=== PATIENT | female | born 2000 | race American Indian/Alaskan Native ===

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

== ENCOUNTER 2019-03-03 15:35 | Emergency (ER) | payer SELFPAY ==
[2019-03-03 16:24] VITALS: BP 118/76
--- NOTE | 2019-03-03 20:00 | Emergency Department Report ---
ED Headache HPI - General Chief Complaint: Headache Stated Complaint: HEADACHES/EXTREME/DIZZY Time Seen by Provider: 03/03/19 19:28 Source: patient Exam Limitations: no limitations - History of Present Illness Initial Comments: 18-year-old female presents to ED with complaint of headaches. Patient reports temporal and frontal headaches times one year. Reports associated nausea, no fever. Reports photophobia. Denies weakness or numbness. Patient states headaches are usually relieved with Goody powder. She states headache usually lasts no more than 2 days at a time. Patient states she has seen her physician about these headaches in the past, prescriptions have been given. Patient has not followed up with a neurologist. Patient states she had a headache earlier today, has now resolved. Timing/Duration: episodic, other (1 year) Quality: moderate Recent Head Trauma: no recent headache/trauma Modifying Factors: improves with: medication (goody powder), rest Associated Symptoms: nausea/vomiting. denies: confusion, fever/chills, numbness in legs/feet, rash, stiff neck, vision changes, weakness Allergies/Adverse Reactions: Allergies No Known Allergies Allergy (Verified 03/03/19 15:42) Home Medications: Ambulatory Orders Acetaminophen/Codeine [Tylenol #3] 1 tab PO Q6H PRN #20 tab 05/07/15 Ibuprofen [Motrin 600 MG tab] 600 mg PO Q8H PRN #30 tablet 08/24/16 Acetaminophen/Codeine [Tylenol /Codeine # 3 tab] 1 tab PO Q4HR PRN #15 tablet 08/30/16 Acyclovir [Zovirax Tab] 800 mg PO Q12H #40 tab 08/30/16 metroNIDAZOLE [Flagyl] 500 mg PO Q12HR #14 tab 08/30/16 Ferrous Sulfate 325 mg PO BID #60 tablet. 12/17/17 oxyCODONE /ACETAMINOPHEN [Percocet 5/325] 1 tab PO Q6HR PRN #30 tablet 12/17/17 Ibuprofen [Motrin 600 MG tab] 600 mg PO Q8H PRN #30 tablet 07/22/18 Butalb/Acetamin/Caff 50-325-40 [Fioricet] 1 tab PO Q6HR PRN #10 tab 03/03/19 ED Review of Systems ROS: Stated complaint: HEADACHES/EXTREME/DIZZY Other details as noted in HPI Comment: All other systems reviewed and negative Constitutional: denies: fever Eyes: other (reports photophobia) Gastrointestinal: nausea Neurological: headache. denies: weakness, numbness, paresthesias ED Past Medical Hx - Past Medical History Previous Medical History?: Yes Hx Hypertension: No Hx Congestive Heart Failure: No Hx Diabetes: No Hx Deep Vein Thrombosis: No Hx Renal Disease: No Hx Sickle Cell Disease: No Hx Seizures: No Hx Asthma: No Hx COPD: No Hx HIV: No - Surgical History Past Surgical History?: No - Social History Smoking Status: Current Some Day Smoker Substance Use Type: None - Medications Home Medications: Home Medications Medication Instructions Recorded Confirmed Last Taken Type Acetaminophen/Codeine [Tylenol #3] 1 tab PO Q6H PRN #20 tab 05/07/15 08/24/16 Unknown Rx Ibuprofen [Motrin 600 MG tab] 600 mg PO Q8H PRN #30 tablet 08/24/16 Unknown Rx Acetaminophen/Codeine [Tylenol 1 tab PO Q4HR PRN #15 tablet 08/30/16 Unknown Rx /Codeine # 3 tab] Acyclovir [Zovirax Tab] 800 mg PO Q12H #40 tab 08/30/16 Unknown Rx metroNIDAZOLE [Flagyl] 500 mg PO Q12HR #14 tab 08/30/16 Unknown Rx Ferrous Sulfate 325 mg PO BID #60 tablet. 12/17/17 Unknown Rx oxyCODONE /ACETAMINOPHEN [Percocet 1 tab PO Q6HR PRN #30 tablet 12/17/17 Unknown Rx 5/325] Ibuprofen [Motrin 600 MG tab] 600 mg PO Q8H PRN #30 tablet 07/22/18 Unknown Rx Butalb/Acetamin/Caff 50-325-40 1 tab PO Q6HR PRN #10 tab 03/03/19 Unknown Rx [Fioricet] ED Physical Exam - General Limitations: No Limitations General appearance: alert, in no apparent distress - Head Head exam: Present: atraumatic, normocephalic - Eye Eye exam: Present: normal appearance, PERRL, EOMI - ENT ENT exam: Present: mucous membranes moist - Neck Neck exam: Present: normal inspection, full ROM. Absent: meningismus - Respiratory Respiratory exam: Present: normal lung sounds bilaterally. Absent: respiratory distress - Cardiovascular Cardiovascular Exam: Present: regular rate, normal rhythm - GI/Abdominal GI/Abdominal exam: Absent: distended - Extremities Exam Extremities exam: Present: normal inspection, full ROM - Neurological Exam Neurological exam: Present: alert, oriented X3, CN II-XII intact, normal gait. Absent: motor sensory deficit - Psychiatric Psychiatric exam: Present: normal affect, normal mood - Skin Skin exam: Present: warm, dry, intact, normal color. Absent: rash ED Course Vital Signs 03/03/19 16:22 Temperature 98.1 F Pulse Rate 74 Respiratory 18 Rate Blood Pressure 118/76 [Right] O2 Sat by Pulse 98 Oximetry ED Medical Decision Making - Medical Decision Making 18-year-old female presents to ED with headache times one year. Headaches are usually frontal or temporal in location. She currently reports headache has improved. Neuro exam is normal. Vital signs are Normal. Likely tension headaches. Patient given prescription for Fioricet and also information for neurology follow-up. Return precautions given. WIll discharge at this time. - Differential Diagnosis migraine headaches, tension headaches, cluster headaches Critical care attestation.: If time is entered above; I have spent that time in minutes in the direct care of this critically ill patient, excluding procedure time. ED Disposition Clinical Impression: Chronic headaches Disposition: DC-01 TO HOME OR SELFCARE Is pt being admited?: No Condition: Stable Instructions: Cluster Headache (ED), Migraine Headache (ED), Tension Headache (ED) Prescriptions: Butalb/Acetamin/Caff 50-325-40 [Fioricet] 1 tab PO Q6HR PRN #10 tab PRN Reason: Headache Referrals: PRIMARY MD KENDRA [Primary Care Provider] - 3-5 Days PEARL KEYS MD [Referring] - 3-5 Days [facility] [Provider Group] - 3-5 Days Time of Disposition: 20:00
== END 2019-03-03 20:09 | disposition home or self-care (01) ==
LOC: ED 15:35
DX: R51 Headache (principal); G89.29 Other chronic pain
CPT/HCPCS: 99281

== ENCOUNTER 2021-12-16 23:35 | Emergency (ER) | payer SELFPAY ==
--- NOTE | 2021-12-17 01:16 | XRay Report ---
RIGHT HAND 3 VIEWS INDICATION / CLINICAL INFORMATION: Right hand swelling for 2 weeks. No known injury per patient. COMPARISON: None available. FINDINGS: BONES and JOINT(S): No acute fracture or subluxation. No significant arthritis. SOFT TISSUES: No significant abnormality. ADDITIONAL FINDINGS: None. IMPRESSION: 1. No acute findings. Signer Name: Shahid Aguilar MD Signed: 12/17/2021 1:12 AM Workstation Name: [id number]
[2021-12-17] MEDS ORDERED: AZITHROMYCIN 250 MG TAB PO ONE (09:28)
[2021-12-17] MEDS ORDERED: LIDOCAINE-MPF (1%) 10 MG/1 ML VIAL 5 ML INFILTRATI ONE (09:28)
[2021-12-17] MEDS ORDERED: IBUPROFEN 800 MG TAB PO ONE (09:34)
--- NOTE | 2021-12-17 09:34 | Emergency Department Report ---
ED Male HPI - General Chief complaint: Extremity Injury, Upper Stated complaint: RIGHTHAND Time Seen by Provider: 12/17/21 09:22 Source: patient Mode of arrival: Ambulatory Limitations: No Limitations - History of Present Illness Initial comments: Patient is a 21-year-old female presenting to ED with complaint of pain and swelling in her right hand beginning yesterday. Denies any injury. - Related Data Previous Rx's Medication Instructions Recorded Last Taken Type Acetaminophen/Codeine [Tylenol #3] 1 tab PO Q6H PRN #20 tab 05/07/15 Unknown Rx Ibuprofen [Motrin 600 MG tab] 600 mg PO Q8H PRN #30 tablet 08/24/16 Unknown Rx Acetaminophen/Codeine [Tylenol 1 tab PO Q4HR PRN #15 tablet 08/30/16 Unknown Rx /Codeine # 3 tab] Acyclovir [Zovirax Tab] 800 mg PO Q12H #40 tab 08/30/16 Unknown Rx metroNIDAZOLE [Flagyl] 500 mg PO Q12HR #14 tab 08/30/16 Unknown Rx Ferrous Sulfate 325 mg PO BID #60 tablet. 12/17/17 Unknown Rx oxyCODONE /ACETAMINOPHEN [Percocet 1 tab PO Q6HR PRN #30 tablet 12/17/17 Unknown Rx 5/325] Ibuprofen [Motrin 600 MG tab] 600 mg PO Q8H PRN #30 tablet 07/22/18 Unknown Rx Butalb/Acetamin/Caff 50-325-40 1 tab PO Q6HR PRN #10 tab 03/03/19 Unknown Rx [Fioricet] Allergies Allergy/AdvReac Type Severity Reaction Status Date / Time No Known Allergies Allergy Verified 03/03/19 15:42 ED Review of Systems ROS: Stated complaint: RIGHTHAND Other details as noted in HPI Constitutional: denies: chills, fever Respiratory: denies: cough, shortness of breath, wheezing Cardiovascular: denies: chest pain, palpitations Gastrointestinal: denies: abdominal pain, nausea, diarrhea Musculoskeletal: denies: back pain, joint swelling, arthralgia Skin: denies: rash, lesions Neurological: denies: headache, weakness, paresthesias Psychiatric: denies: anxiety, depression ED Past Medical Hx - Past Medical History Hx Hypertension: No Hx Congestive Heart Failure: No Hx Diabetes: No Hx Deep Vein Thrombosis: No Hx Renal Disease: No Hx Sickle Cell Disease: No Hx Seizures: No Hx Asthma: No Hx COPD: No Hx HIV: No - Social History Smoking Status: Never Smoker Substance Use Type: None - Medications Home Medications: Home Medications Medication Instructions Recorded Confirmed Last Taken Type Acetaminophen/Codeine [Tylenol #3] 1 tab PO Q6H PRN #20 tab 05/07/15 08/24/16 Unknown Rx Ibuprofen [Motrin 600 MG tab] 600 mg PO Q8H PRN #30 tablet 08/24/16 Unknown Rx Acetaminophen/Codeine [Tylenol 1 tab PO Q4HR PRN #15 tablet 08/30/16 Unknown Rx /Codeine # 3 tab] Acyclovir [Zovirax Tab] 800 mg PO Q12H #40 tab 08/30/16 Unknown Rx metroNIDAZOLE [Flagyl] 500 mg PO Q12HR #14 tab 08/30/16 Unknown Rx Ferrous Sulfate 325 mg PO BID #60 tablet. 12/17/17 Unknown Rx oxyCODONE /ACETAMINOPHEN [Percocet 1 tab PO Q6HR PRN #30 tablet 12/17/17 Unknown Rx 5/325] Ibuprofen [Motrin 600 MG tab] 600 mg PO Q8H PRN #30 tablet 07/22/18 Unknown Rx Butalb/Acetamin/Caff 50-325-40 1 tab PO Q6HR PRN #10 tab 03/03/19 Unknown Rx [Fioricet] ED Physical Exam - General Limitations: No Limitations General appearance: alert, in no apparent distress, obese - Head Head exam: Present: atraumatic, normocephalic - Respiratory Respiratory exam: Present: normal lung sounds bilaterally. Absent: respiratory distress - Cardiovascular Cardiovascular Exam: Present: regular rate, normal rhythm, normal heart sounds - GI/Abdominal GI/Abdominal exam: Present: soft. Absent: distended, tenderness - Extremities Exam Extremities exam: Present: other (Mild swelling to dorsum of right hand with associated tenderness. There is no warmth or erythema.) - Neurological Exam Neurological exam: Present: alert, oriented X3 - Psychiatric Psychiatric exam: Present: normal affect, normal mood - Skin Skin exam: Present: warm, dry, intact, normal color ED Course Vital Signs 12/17/21 12/17/21 12/17/21 00:45 09:07 09:08 Temperature 98.5 F 98.6 F Pulse Rate 98 H 82 Respiratory 18 20 Rate Blood Pressure 124/67 Blood Pressure 138/87 [Left] O2 Sat by Pulse 100 98 98 Oximetry ED Medical Decision Making - Medical Decision Making X-ray of right hand unremarkable. Patient given ibuprofen for pain. 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 Critical care attestation.: If time is entered above; I have spent that time in minutes in the direct care of this critically ill patient, excluding procedure time. ED Disposition Clinical Impression: Right hand pain, Swelling of right hand Disposition: 01 HOME / SELF CARE / HOMELESS Is pt being admited?: No Condition: Stable Instructions: Hand Pain Additional Instructions: Please follow-up with your regular doctor at your earliest convenience. You may take ibuprofen 600 to 800 mg every 8 hours for pain. Time of Disposition: 09:36
[2021-12-17 10:04] VITALS: BP 128/87
== END 2021-12-17 10:15 | disposition home or self-care (01) ==
LOC: ED 23:35
DX: M79.641 Pain in right hand (principal); M25.441 Effusion, right hand
CPT/HCPCS: 99284